=== PATIENT | male | born 1995 | race African-American/Black ===

== ENCOUNTER → 2016-11-19 | Outpatient (CLI) | payer BC, OTHER ==
[~2016-11-19] MED LIST: AZIT250T PO; FLUT0.15 NAE; INHALER INH; LISD60CA PO
== END | disposition home or self-care (01) ==
LOC: C.RDSM 13:45
PROVIDERS: ATTEND Physical Medicine & Rehabilitation Sports Medicine
DX: M25.461 Effusion, right knee (principal); S83.281A Other tear of lateral meniscus, current injury, right knee, initial encounter; X58.XXXA Exposure to other specified factors, initial encounter

== ENCOUNTER → 2016-11-20 | Outpatient (CLI) | payer BC, OTHER ==
--- NOTE | 2016-11-20 14:50 | DIAGNOSTIC IMAGING REPORT ---
MRI THE RIGHT KNEE NO CONTRAST CLINICAL HISTORY: Right knee pain. History of trauma. COMPARISON STUDY: 11/13/2015, conventional radiographic study dated 11/19/2016 FINDINGS: The patient was imaged in the sagittal, coronal, and axial planes. There is a suprapatellar joint effusion. There are no areas of marrow edema to indicate occult fracture or bone bruise. The quadriceps and patellar tendons appear intact. The anterior and posterior cruciate ligaments appear intact. The medial and lateral collateral ligaments appear intact. The patellar retinacular structures appear intact. Degenerative signal changes are present within the posterior horn the medial meniscus. There is Linear signal within the posterior horn the lateral meniscus which appears to reach the meniscal apex. This is consistent with a horizontal tear. There is cartilaginous signal abnormality within the medial aspect of the lateral tibial plateau.. IMPRESSION: 1. Supra patellar joint effusion 2. Cartilaginous injury involving the medial aspect of the lateral tibial plateau 3. Horizontal tear involving the posterior horn the lateral meniscus 3. No evidence of cruciate or collateral ligament disruption. Electronically signed by: Cristino Bolton M.D. 11/20/2016 2:48 PM Dictated Date/Time: 11/20/2016 2:38 PM
== END | disposition home or self-care (01) ==
LOC: C.MRI 13:39
PROVIDERS: ATTEND Physical Medicine & Rehabilitation
DX: S83.281A Other tear of lateral meniscus, current injury, right knee, initial encounter (principal); X58.XXXA Exposure to other specified factors, initial encounter

== ENCOUNTER → 2016-12-16 | Day surgery (SDC) | payer BC, OTHER ==
[2016-12-15 13:53] VITALS: Ht 207 cm; Wt 109.1 kg
[~2016-12-16] VITALS: Ht 207 cm; Wt 109.1 kg
[~2016-12-16] MED LIST changes: +ATROPINE SULFATE 0.1 MG/ML 5ML SYR IV PRN; +AZITHROMYCIN 250 MG TAB PO ONE; +BUPIVACAINE/EPINEPHRINE 0.5% MPF 1:200,000 30 ML VIAL ONE; +CLINDAMYCIN PHOS 150 MG/ML 2 ML VIAL IV SCH; +DEXAMETHASONE SOD INJ 4 MG/ML VIAL ONE; +FENTANYL CITRATE INJ 50 MCG/1 ML 2 ML VIAL ONE; +HYDROCODONE/ACETAMOPHEN 5/325MG TAB PO PRN; +KETOROLAC TROMETHAMINE 30 MG/ML VIAL IV. PRN; +LACTATED RINGER'S 1000ML 1,000 ML IV SCH; +LIDOCAINE HCL 2% 2 ML VIAL (20MG/ML) ONE; +MEPERIDINE HCL 25 MG/ML CARP IV PRN; +METOCLOPRAMIDE HCL INJ 5 MG/ML 2 ML VIAL ONE; +MIDAZOLAM HCL 1 MG/ML 2ML VIAL ONE; +MoRPHine SULFATE PF 1 MG/ML 10 ML AMP/VIAL ONE; +ONDANSETRON INJ 2 MG/ML 2 ML VIAL IV PRN; +ONDANSETRON INJ 2 MG/ML 2 ML VIAL ONE; +PROMETHAZINE HCL INJ 12.5 MG in SODIUM CHLORIDE 0.9% 50ML 50 ML IV PRN; +PROPOFOL IV EMULSION 10 MG/ML 20 ML VIAL IV ONE; +SODIUM CHLORIDE 0.9% 1000ML 1,000 ML IV SCH
--- NOTE | 2016-12-16 06:44 | History & Physical Bridge Note ---
H&P Re-Evaluation Bridge Note: I have examined the patient, reviewed the History & Physical and in the interval since the performance of the History & Physical I have noted the following changes of clinical significance: No changes noted
--- NOTE | 2016-12-16 06:45 | Discharge Instructions ---
Discharge Instructions Date of Service Dec 16, 2016. Visit Reason for Visit: Right Knee Lateral Meniscus Tear, Chondral Fx Lat Discharge Discharge Diagnosis / Problem: same Discharge Goals Goal(s): Decrease discomfort, Improve function Medications Stopped Medications Name(s): na Restart Stopped Medication(s): use scripts as directed Activity Recommendations Activity Limitations: as noted below Lifting Limitations: until after follow-up appointment Exercise/Sports Limitations: until after follow-up appointment May Resume Sexual Activity: when tolerated Shower/Bathe: keep incision dry Driving or Machine Use: Weightbearing Status: Right non-weightbearing Anesthesia . Post Anesthesia Instructions: If you have had General Anesthesia or IV Sedation: * Do not drive today. * Resume driving when surgeon permits. * Do not make important decisions or sign legal documents today. * Call surgeon for: 1. Temperature elevations greater than 101 degrees F. 2. Uncontrollable pain. 3. Excessive bleeding. 4. Persistent nausea and vomiting. 5. Medication intolerance (nausea, vomiting or rash). * For nausea and vomiting use only clear liquids such as: tea, soda, bouillon until nausea subsides, then gradually increase diet as tolerated. * If you have any concerns or questions, call your surgeon's office. If physician is unavailable and it is an emergency, call 911 or go to the nearest emergency room. . Instructions / Follow-Up Instructions / Follow-Up The following are instructions to follow after your Arthroscopic Knee Surgery. ACTIVITY RECOMMENDATIONS: * Minimize activity until your first visit after surgery. * No excessive walking, jogging, sports or laboring. * Return to activity is individualized. Most patients are able to return to every day activities within one month. * Return to sports or intensive labor usually occurs at 2-3 months. * Driving is not permitted until at least your first postoperative visit at a minimum. Please ask your doctor when it is safe to resume driving. If you have an automatic vehicle and your left leg has been operated on, then you may begin driving as soon as you are comfortable and can drive safely. SCHOOL/WORK RECOMMENDATIONS: * You may return to sedentary work or school when you are feeling more comfortable. This is usually 3-7 days after surgery. * Expect increased discomfort with increased activity. Continue to elevate and ice the leg as much as possible. MEDICATIONS: * You will have a prescription for pain medication and an anti-inflammatory medication after surgery. * Use the pain medication for severe pain and the anti-inflammatory for less severe pain. Once the pain medication has run out, try to use the anti-inflammatory medication. If this is not effective, contact the office for assistance. * The pain medication may cause nausea, constipation and drowsiness. You should see how they affect you before driving or similar activity. * The anti-inflammatory medication may cause stomach upset and bleeding. If this occurs let your doctor know immediately . * Take a stool softener like Colace or a laxative like Senokot to prevent constipation. DIET: * Resume previous diet. SPECIAL CARE: ICE: You have the option of an ice cooler, gel packs or ice bags. * If you have an ice cooler, refer to the instructions for that device. The ice cooler may be used continuously. * If you do not have an ice cooler, you will need to use ice bags or gel packs. Do not apply ice directly to the skin. Use a thin dressing or carlos shirt between the skin and ice bag. Apply ice for 20-30 minutes and repeat every 2-4 hours. This is especially important for the first 7-10 days after surgery. Once the pain improves, use ice as needed. ELEVATION: * Keep your leg elevated at or above the level of your heart as much as possible. * Expect some increased discomfort and swelling if you are standing for any length of time. * When lying down, avoid placing anything under your knee. Rather, prop your leg up by placing several pillows under your heel or calf. DRESSING: * Your dressing will be changed at your first therapy appointment approximately 4-5 days after surgery. Band-aids, tape strips or gauze may be applied. You may then change your dressing daily. * Reapply dressing followed by the Nando wrap or Tubi-sports therapist stockinet and EBIce cooling pad (if chosen). * Always wash your hands prior to touching the incision area. * Once the stitches are removed, you may leave the wound open to air or cover with an Nando wrap or Tubi-sports therapist stockinet. * If you have been given a white elastic stocking (INNA hose), wear as much as possible for the first 1-3 weeks depending on swelling. * Expect some bloody drainage for the first few days after surgery. * Leave the tape strips, if present, in place for 5-7 days. * Band-aids and gauze may be changed daily. CRUTCHES: * You will need to use crutches after surgery. * You may gradually progress to full weight bearing as tolerated and wean off the crutches unless otherwise advised. * Your therapist can provide assistance weaning off crutches. * Patients who have a microfracture done may need to be toe-touch weight- bearing for 4-6 weeks. BATHING: * You may shower or sponge-bathe immediately after surgery. * The dressing will need to be covered with a plastic bag or plastic wrap until the dressing is changed on the fourth or fifth day after surgery. * Once the dressing has been changed on the fourth or fifth day after surgery, you may shower and get the incision wet. * Wash with regular soap and water. * Do not bathe (submerge the incision), soak, swim or use a hot tub until the incision is completely healed over with normal skin and the doctor has given the OK to proceed. * There is no need to apply any ointments, powders or salves to your incision. * Do not apply alcohol or hydrogen peroxide directly to the incision. * Diluted peroxide (50:50 mixture with sterile saline) may be used to clean dried blood from around the incision area. BRACE: * Bracing is generally not needed after routine Arthroscopic Knee surgery. THERAPY: * You will begin therapy four or five days after surgery. * Organized therapy with the therapist is important for the first 4-6 weeks after surgery. During that time you will attend therapy 1-3 times per week. * You will also need to do daily exercises for range of motion and strength as instructed. PROBLEMS/QUESTIONS: * If you have any problems such as severe pain, numbness, tingling or high fevers or if you have any questions, please contact the office at [phone]. * It is not uncommon to have some numbness and tingling after the surgery especially if you have had a nerve block done. This should gradually improve over the first 1- 2 days. If this persists longer or worsens please contact the office. FOLLOW UP VISIT: * If not already scheduled, please call the office at to schedule a follow-up appointment for 10 days, 6 weeks and 3 months after surgery. Diet Recommendations Recommended Home Diet: resume previous diet Pending Studies Studies pending at discharge: no Medical Emergencies . Who to Call and When: Medical Emergencies: If at any time you feel your situation is an emergency, please call 911 immediately. . Non-Emergent Contact Non-Emergency issues call your: Specialist Call Non-Emergent contact if: temperature is above 101.5 . . "Provider Documentation" section prepared by Bandar Hdz.
--- NOTE | 2016-12-16 08:01 | [facility] Post Operative Brief Note ---
Immediate Operative Summary Operative Date Dec 16, 2016. Pre-Operative Diagnosis Right Knee Pain Post-Operative Diagnosis Same Procedure(s) Performed Right Knee Arthroscopy, Small Partial Lateral Meniscectomy with Meniscal Repair, Microfracture lateral tibial plateau Surgeon Dr. Hdz Digital Asset Specialist Surgeon(s) Janice Corrales PA-C Estimated Blood Loss Trace Findings see op note Fluids (cc crystalloids) 1200cc Specimens None Drains none Anesthesia LMA/IA block Complication(s) None Disposition Recovery Room / PACU
[2016-12-16] MEDS: FENTANYL CITRATE INJ 50 MCG/1 ML 2 ML VIAL IV PRN ×2 (08:34→08:42)
--- NOTE | 2016-12-16 08:41 | OPERATIVE REPORT ---
DATE OF OPERATION: 12/16/2016 SURGEON: Dr. Hdz. RUNNING SPECIALIST: Lewis Corrales PA-C. No resident or fellow available. PREOPERATIVE DIAGNOSIS: Right knee lateral meniscal tear, articular lesion lateral tibial plateau. POSTOPERATIVE DIAGNOSIS: Same. OPERATION PERFORMED: 1. Exam under anesthesia. 2. Diagnostic arthroscopy. 3. Arthroscopic combined partial lateral meniscectomy and meniscal repair. 4. Arthroscopic chondroplasty and microfracture of lateral tibial plateau 7 x 7 mm2 area. 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 Physical exam, x-ray, and MRI scan consistent with the above injury. DESCRIPTION OF PROCEDURE: The patient appropriately identified, site verified, consent verified, 900 mg of clindamycin confirmed as being given. The right lower extremity was examined revealing no ligamentous instability. He was then sterilely prepped and draped in usual routine fashion after injected with 20 mL of 0.5% Marcaine with epinephrine and 5 mg of Duramorph for postoperative pain control. No tourniquet was utilized or applied. The inframedial and inferolateral portals were then injected with 4 mL of 0.5% Marcaine with epinephrine. The knee was then scoped, revealing some diffuse synovitis which was incidentally debrided. The medial compartment was healthy. The medial meniscus and articular surfaces were healthy. The ACL and PCL were healthy. The lateral compartment had a 7 x 7 mm area just off the lateral aspect of the eminence, which was full thickness and flapping. It was debrided to a stable base, curetted to remove the calcified cartilage there and then microfractured with 3 holes. The lateral meniscus then had a tip tear and then a meniscal capsular separation, the tip tear was resected and then meniscus capsule separation was lightly shaved and then rasped to induce bleeding and then 3 sutures were placed holding the meniscus in good position. It was very stable to probing. There was no major articular disease of the lateral femoral condyle. An incidental synovectomy was performed in the patellofemoral joint. The overall patellofemoral joint was healthy. The procedure was then terminated. All instruments and fluid removed. The portals closed with 4-0 nylon, dressed appropriately, Nando bandage applied and then a range of motion brace applied and locked at 0 degrees. He will be non-weightbearing for the microfracture. No motion for 2 weeks for the meniscus repair. Non-weightbearing for a total of 6 weeks and then start range of motion at 2 weeks 0-90 to tolerance. DVT prophylaxis with aspirin. I attest to the content of the Intraoperative Record and any orders documented therein. Any exceptio ns are noted below.
--- NOTE | 2016-12-16 08:56 | Anesthesia Progress Nt - [facility] ---
Anesthesia Post Op Note Date & Time Dec 16, 2016 at 08:55 Vital Signs Vital Signs Past 12 Hours Date Time Temp Pulse Resp B/P Pulse Ox O2 Delivery O2 Flow Rate FiO2 12/16/16 08:17 37.1 85 16 133/79 100 Mask 6 12/16/16 06:50 36.6 61 16 131/79 100 Room Air Notes Mental Status: alert / awake / arousable, participated in evaluation Pt Amnestic to Procedure: Yes Nausea / Vomiting: adequately controlled Pain: adequately controlled Airway Patency, RR, SpO2: stable & adequate BP & HR: stable & adequate Hydration State: stable & adequate Anesthetic Complications: no major complications apparent
[2016-12-16 09:03] VITALS: TEMP 36.4
[2016-12-16 09:48] VITALS: BP 115/69; PULSE 65; O2SAT 100
--- NOTE | 2016-12-16 12:13 | OPERATIVE REPORT ---
DATE OF OPERATION: 12/16/2016 PREOPERATIVE DIAGNOSIS: Right knee lateral meniscal tear with articular lesion of the lateral tibial plateau. POSTOPERATIVE DIAGNOSIS: Right knee same. PROCEDURES: Right knee arthroscopy, partial lateral meniscectomy with meniscal repair, and chondroplasty and microfracture of lateral tibial plateau 7 mm2 area. HISTORY OF PRESENT ILLNESS: This 21-year-old -[place] male presented to the office with complaints of right knee pain, primarily lateral, after injuring himself during a basketball game. X-ray and MRI were obtained. He elected to proceed with surgical intervention after being educated about potential risks and outcomes. OPERATION: The patient was taken to the operating room where he was given general anesthetic. He was prepped and draped in the usual sterile fashion. Please see Dr. Hdz's operative report for specifics of the procedure. I was present for the entire case from initial patient positioning through final wound closure. Assistance was provided in patient positioning, arthroscopy, microfracture and final wound closure. The patient was taken to the recovery room in satisfactory condition. I attest to the content of the Intraoperative Record and any orders documented therein. Any exceptio ns are noted below.
== END | disposition home or self-care (01) ==
LOC: X.SURG 06:18
PROVIDERS: ATTEND Physical Medicine & Rehabilitation Sports Medicine
DX: S83.281A Other tear of lateral meniscus, current injury, right knee, initial encounter (principal); M24.10 Other articular cartilage disorders, unspecified site; X58.XXXA Exposure to other specified factors, initial encounter; J45.909 Unspecified asthma, uncomplicated; Y93.67 Activity, basketball; Z98.890 Other specified postprocedural states; Z98.818 Other dental procedure status; Z68.25 Body mass index [BMI] 25.0-25.9, adult